=== PATIENT | male | born 2000 ===

== ENCOUNTER 2025-04-22 00:11 | Emergency (ER) | payer SELFPAY ==
[~2025-04-22] VITALS: Ht 177.8 cm; Wt 72.6 kg
[2025-04-22] MEDS ORDERED: Albuterol Sulf/Ipratropium 3 ML VIAL NEB ONE (00:15)
[2025-04-22] MEDS ORDERED: PREDNISONE20 M1 PO (01:50)
== END 2025-04-22 01:49 | disposition home or self-care (01) ==
LOC: ED 00:11 → EDBD 00:14 → ED 01:49
DX: J45.901 Unspecified asthma with (acute) exacerbation (principal)

== ENCOUNTER 2025-04-23 23:46 | Emergency (ER) | payer SELFPAY ==
[~2025-04-23] VITALS: Ht 182.8 cm; Wt 68.0 kg
[~2025-04-23 23:46] MED LIST: PREDNISONE20 M1 PO
[2025-04-23] MEDS ORDERED: Albuterol Sulf/Ipratropium 3 ML VIAL NEB ONE (23:55)
[2025-04-24] MEDS ORDERED: Albuterol Sulf/Ipratropium 3 ML VIAL NEB ONE (00:50)
== END 2025-04-24 01:37 | disposition home or self-care (01) ==
LOC: ED 23:46
DX: J45.901 Unspecified asthma with (acute) exacerbation (principal)

== ENCOUNTER 2025-05-09 19:44 | Emergency (ER) | payer MEDICAID ==
[~2025-05-09] VITALS: Ht 182.9 cm; Wt 68.0 kg
[2025-05-09] MEDS ORDERED: Albuterol Sulf/Ipratropium 3 ML VIAL NEB ONE ×2 (20:10→21:00)
== END 2025-05-09 21:42 | disposition home or self-care (01) ==
LOC: ED 19:44
DX: J45.901 Unspecified asthma with (acute) exacerbation (principal); Z79.899 Other long term (current) drug therapy

== ENCOUNTER → 2025-05-22 | Outpatient (CLI) | payer MEDICAID | END | disposition home or self-care (01) | LOC: RESCLI 12:55 | PROVIDERS: ATTEND Family Medicine | DX: J45.909 Unspecified asthma, uncomplicated (principal); F17.200 Nicotine dependence, unspecified, uncomplicated; Z79.899 Other long term (current) drug therapy ==

== ENCOUNTER 2025-06-11 22:50 | Emergency (ER) | payer MEDICAID ==
[~2025-06-11] VITALS: Ht 177.8 cm; Wt 77.1 kg
[2025-06-11] MEDS ORDERED: Albuterol Sulf/Ipratropium 3 ML VIAL NEB ONE (22:55)
== END 2025-06-12 00:28 | disposition home or self-care (01) ==
LOC: ED 22:50
DX: J45.901 Unspecified asthma with (acute) exacerbation (principal)